=== PATIENT | male | born 1970 | race Caucasian/White ===

== ENCOUNTER 2016-10-28 13:47 | Outpatient (CLI) | payer BC | END 2016-10-28 13:48 | disposition home or self-care (01) | LOC: CONVCARE 13:47 | PROVIDERS: ATTEND Orthopaedic Surgery | DX: M17.12 Unilateral primary osteoarthritis, left knee (principal); S83.242A Other tear of medial meniscus, current injury, left knee, initial encounter | CPT/HCPCS: 73564; 73721 ==

== ENCOUNTER 2018-04-30 08:04 | Day surgery (SDC) | payer BC ==
[2018-04-30] MEDS ORDERED: BUPIVACAINE/EPI 0.5% 10 ML SOL INFIL ONE (10:11)
[2018-04-30 10:17] VITALS: BP 123/72; PULSE 60; RESP 16; TEMP 98.3; O2SAT 96
== END 2018-04-30 11:10 | disposition home or self-care (01) ==
LOC: SURG 08:04
PROVIDERS: ATTEND Surgery
DX: L72.3 Sebaceous cyst (principal)
CPT/HCPCS: 99001